=== PATIENT | male | born 1950 | race Caucasian/White ===

== ENCOUNTER 2023-05-09 15:27 | Emergency (ER) | payer MEDICARE, OTHER ==
[2023-05-09] MEDS ORDERED: ONDANSETRON 4 MG/2 ML VIAL IVP STA (15:39)
[2023-05-09] MEDS ORDERED: SILVER SULFADIAZINE CREAM 25 GM TUBE TOP STA (15:39)
[2023-05-09] MEDS ORDERED: MORPHINE 2 MG/ML CARPUJECT IVP STA (15:39)
[2023-05-09 16:17] VITALS: BP 117/78
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
== END 2023-05-09 16:39 | disposition home or self-care (01) ==
LOC: ED 15:27
DX: T21.21XA Burn of second degree of chest wall, initial encounter (principal); T31.11 Burns involving 10-19% of body surface with 10-19% third degree burns
CPT/HCPCS: 16030; 36415; 96374; 96375; 99283; A9270